=== PATIENT | female | born 1995 | race Caucasian/White ===

== ENCOUNTER 2016-11-24 15:07 | Observation (INO) | payer BC ==
[~2016-11-24] VITALS: Ht 162.6 cm; Wt 54.1 kg
[2016-11-24] MEDS ORDERED: MINASTRIN PO (15:23)
[2016-11-24 16:27] LABS: HEMOGLOBIN 12.6 g/dl (12.0-15.0); MEAN CELL VOLUME 87 fl (80.0-95.0); MEAN CORPUSCULAR HEMOGLOBIN 30 pg (26.0-32.0); MEAN CORPUSCULAR HGB CONC 34 g/dl (33.0-37.0); MEAN PLATELET VOLUME 10.5 fl (7.4-10.4); PLATELET COUNT 148 K/mm3 (130-400); RED BLOOD COUNT 4.22 M/mm3 (4.10-5.30); REDCELL DISTRIBUTION WIDTH-CV 12.1 % (11.5-14.5); WHITE BLOOD COUNT 10.8 K/mm3 (4.8-10.8)
[2016-11-24 16:30] LABS: ADD PATHOLOGY DIFF REVIEW NO; HEMATOCRIT 36.9 % (35.0-45.0)
[2016-11-24 16:51] LABS: BAND 4 % (0-10); NEUTROPHILS 92 % (42.0-75.2); PLATELET ESTIMATE NORMAL (NORMAL); TOTAL CELLS COUNTED 100
[2016-11-24 16:54] LABS: ADJUSTED CALCIUM 8.7 mg/dL (8.4-10.2); ALANINE AMINOTRANSFERASE 25 U/L (9-52); ALBUMIN 4.2 gm/dL (3.5-5.0); ALKALINE PHOSPHATASE 63 U/L (50-136); ANION GAP 14 mmol/L (7-16); BLOOD UREA NITROGEN 9 mg/dL (7-17); CALCIUM 8.9 mg/dL (8.4-10.2); CARBON DIOXIDE 22 mmol/L (22-30); CHLORIDE 100 mmol/L (98-107); GLUCOSE 83 mg/dL (74-106); POTASSIUM 3.7 mmol/L (3.4-5.0); SODIUM 136 mmol/L (137-145); TOTAL PROTEIN 6.8 gm/dL (6.4-8.2)
[2016-11-24 16:56] LABS: C-REACTIVE PROTEIN < 0.5 mg/dL (0.0-0.9)
[2016-11-24 17:32] LABS: PH 5 (5-8); URINE APPEARANCE Clear; URINE BACTERIA None Seen /hpf; URINE BILIRUBIN Negative (NEGATIVE); URINE BLOOD 3+ (NEGATIVE); URINE COLOR Yellow; URINE GLUCOSE Negative (NEGATIVE); URINE KETONE 2+ (NEGATIVE); URINE RBC 0-2 /hpf; URINE UROBILINOGEN Negative (NEGATIVE)
[2016-11-24 20:38] VITALS: BP 104/57; PULSE 68; TEMP 99.1
[2016-11-25] VITALS (11 sets, daily range): BP systolic 90–114; BP diastolic 47–70; PULSE 81–117; TEMP 98.3–99.3
[2016-11-25 06:23] LABS: BASO % 0.2 % (0.0-2.0); GRAN # 10.1 (1.4-6.5); GRAN % 87.1 % (42.2-75.2); HEMOGLOBIN 11.8 g/dl (12.0-15.0); LYMPH # 0.6 (1.2-3.4); LYMPH % 4.7 % (20.0-51.0); MEAN CELL VOLUME 87 fl (80.0-95.0); MEAN CORPUSCULAR HEMOGLOBIN 30 pg (26.0-32.0); MEAN CORPUSCULAR HGB CONC 35 g/dl (33.0-37.0); MEAN PLATELET VOLUME 10.4 fl (7.4-10.4); MONO # 0.9 (0.1-0.6); MONO % 7.6 % (1.7-9.3); PLATELET COUNT 130 K/mm3 (130-400); RED BLOOD COUNT 3.91 M/mm3 (4.10-5.30); REDCELL DISTRIBUTION WIDTH-CV 12.2 % (11.5-14.5); WHITE BLOOD COUNT 11.6 K/mm3 (4.8-10.8)
[2016-11-25 06:38] LABS: CALCIUM 8.5 mg/dL (8.4-10.2); CREATININE, serum 0.59 mg/dL (0.52-1.25); POTASSIUM 3.5 mmol/L (3.4-5.0)
[2016-11-25] MEDS ORDERED: NORCO 325 MG-51 TAB PO (08:32)
[2016-11-25] MEDS ORDERED: MOTRIN 600600 MG/TAB PO (08:32)
[2016-11-25] MEDS ORDERED: AMOXICILLIN 8751 TAB PO (08:32)
[2016-11-25] MEDS ORDERED: COLACE 100100 MG/CAP PO (08:33)
[2016-11-25] MEDS ORDERED: ZOFRAN ODT4 MG PO (08:33)
== END 2016-11-25 15:22 | disposition home or self-care (01) ==
LOC: COL.ER 15:07 → SURG 19:25
PROVIDERS: Nurse Practitioner; Surgery
DX: K35.80 Unspecified acute appendicitis (principal)
CPT/HCPCS: G0378; J0690; J0694; J1100; J1885; J2270; J2405; J2704; J2710; J2765; J3010; J7030; J7120; Q9967